=== PATIENT | male | born 1970 | race Caucasian/White ===

== ENCOUNTER → 2016-06-05 | Outpatient (CLI) | payer BC ==
--- NOTE | 2016-06-05 11:47 | EST ---
DATE OF SERVICE: 06/05/2016 AGE: 46Y SEX: M HT: 71" WT: 215 lbs. Protocol Schuyler: X Other: Stress Stage: IV Dur. of Exercise: 12:00 *Heart Rate Blood Pressure *Rest: 92 Rest: 135/87 * *Max. Achieved: 156 Maximum BP: 158/75 85% PMHR: 149 100% PMHR: 175 *METS: 12.1 INDICATIONS: Chest pain. MEDICATIONS: Crestor, Flonase. The test is being done to evaluate chest pains. Baseline EKG showed a sinus rhythm with normal IA interval and QRS duration. Blood pressure at rest is 135/87 with a pulse rate of 92. Patient walked on the Schuyler protocol for 12 minutes achieving a maximum heart rate of 156 with a blood pressure of 158/75. EKGs taken during and after the exercise did not reveal any significant changes from the baseline. FINAL IMPRESSION: 1. Negative stress test. 2. Good exercise capacity. 3. No arrhythmias were detected. 4. Patient did not experience any chest pain.
== END | disposition home or self-care (01) ==
LOC: RADNMMAIN 10:31
PROVIDERS: ATTEND Family Medicine
DX: R07.9 Chest pain, unspecified (principal)
CPT/HCPCS: 93017

== ENCOUNTER → 2016-07-18 | Outpatient (CLI) | payer BC ==
--- NOTE | 2016-07-18 09:32 | ECHOF ---
Referral Reason:R07.9 chest pain MEASUREMENTS -------- HEIGHT: 162.6 cm WEIGHT: 97.5 kg BP: RVIDd: 2.8 cm (< 3.3) IVSd: 1.0 cm (0.6 - 1.1) LVIDd: 5.2 cm (3.9 - 5.3) LVPWd: 1.4 cm (0.6 - 1.1) IVSs: 1.6 cm LVIDs: 4.3 cm LVPWs: 1.6 cm LA Diam: 4.0 cm (2.7 - 3.8) Ao Diam: 3.2 cm (2.0 - 3.7) LA Diam: 4.5 cm (2.7 - 3.8) MV EXCURSION: 24.208 mm (> 18.000) MV EF SLOPE: 115 mm/s (70 - 150) EPSS: 2.0 cm MV E Rey: 0.85 m/s MV DecT: 136 ms MV A Rey: 0.50 m/s MV E/A Ratio: 1.70 RAP: 5.00 mmHg FINDINGS -------- Sinus rhythm. This was a technically excellent study. LV size, wall thickness and systolic function are normal, with an EF greater than 55%. The right ventricle is normal in size. The left atrial size is normal. The right atrial size is normal. There is mild aortic valve sclerosis. There is no evidence of aortic regurgitation. Mild mitral annular calcification present. Mild mitral regurgitation is present. Mild tricuspid regurgitation present. There is no evidence of pulmonary hypertension. The right ventricular systolic pressure, as measured by Doppler, is {RVSP}. There is no pulmonic regurgitation present. The aortic root size is normal. There is no pericardial effusion. CONCLUSIONS -------- 1. LV size, wall thickness and systolic function are normal, with an EF greater than 55%. 2. There is no pericardial effusion. 3. There is mild aortic valve sclerosis. 4. Mild mitral annular calcification present. 5. Mild mitral regurgitation is present. 6. Mild tricuspid regurgitation present. 7. There is no evidence of pulmonary hypertension. 8. The right ventricular systolic pressure, as measured by Doppler, is {RVSP}. 9. There is no pulmonic regurgitation present. 10. The aortic root size is normal. EDITOR MAGAZINE: Taniya Yañez RDCS
== END | disposition home or self-care (01) ==
LOC: RADECHMAIN 08:27
PROVIDERS: ATTEND Family Medicine
DX: R07.9 Chest pain, unspecified (principal)
CPT/HCPCS: 93306